=== PATIENT | female | born 1975 | race Caucasian/White ===

== ENCOUNTER 2019-10-19 10:37 | Emergency (ER) | payer BC, OTHER ==
[2019-10-19] MEDS ORDERED: Acetaminophen/HYDROcodone 325-5 MG Tab PO ONE (11:42)
--- NOTE | 2019-10-19 11:50 | EDM.PDOC ---
ED HPI GENERAL MEDICAL PROBLEM - General Chief Complaint: Upper Extremity Injury/Pain Stated Complaint: HURT LEFT ARM BETWEEN GATE & HORSE Time Seen by Provider: 10/19/19 11:03 Source of Information: Reports: Patient History Limitations: Reports: No Limitations - History of Present Illness INITIAL COMMENTS - FREE TEXT/NARRATIVE: Patient is a 44-year-old female who presents with complaints of left elbow pain after her elbow became pinned between a gate and a horse. The majority of her pain is to the medial aspect of the elbow. She does have a 1 cm abrasion to the posterior elbow. She has been able to move the arm all but it is painful. However it is painful. Denies any numbness or tingling down the extremity. She has had no history of previous injury to this extremity. 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 ED EXAM, GENERAL - Physical Exam Exam: See Below Exam Limited By: No Limitations General Appearance: Alert, WD/WN, Mild Distress Respiratory/Chest: No Respiratory Distress, Lungs Clear, Normal Breath Sounds, No Accessory Muscle Use, Chest Non-Tender Cardiovascular: Normal Peripheral Pulses, Regular Rate, Rhythm, No Edema, No Gallop, No JVD, No Murmur, No Rub Extremities: Other (Edema and ecchymosis to the medial aspect of the left elbow. 1 cm abrasion to the posterior aspect of the elbow. No obvious deformity. Patient does have full range of motion, however it is painful.) Neurological: Alert, Oriented, CN II-XII Intact, Normal Cognition, Normal Gait, Normal Reflexes, No Motor/Sensory Deficits Psychiatric: Normal Affect, Normal Mood Skin Exam: Warm, Dry, Intact, Normal Color, No Rash Course - Vital Signs Last Recorded V/S: Last Vital Signs Temp 98.6 F 10/19/19 10:43 Pulse 55 L 10/19/19 10:43 Resp 18 10/19/19 10:43 BP 128/84 10/19/19 10:43 Pulse Ox 100 10/19/19 10:43 - Orders/Labs/Meds Orders: Active Orders 24 hr Category Date Time Status Elbow Min 3V Lt [CR] Stat Exams 10/19/19 11:03 Taken Meds: Medications Discontinued Medications Generic Name Dose Route Start Last Admin Trade Name Freq PRN Reason Stop Dose Admin Hydrocodone Bitart/Acetaminophen 2 tab 10/19/19 11:42 10/19/19 11:51 [place] 325-5 Mg PO 10/19/19 11:43 2 tab ONETIME ONE Administration - Re-Assessments/Exams Free Text/Narrative Re-Assessment/Exam: 10/19/19 11:44 X-ray of the left elbow shows a small anterior fat pad. On the oblique view, there is a sharp protruding area on the proximal ulna that is concerning for a fracture versus bone spur. Patient has been placed in a posterior splint. She has been provided with an arm sling. We will have her follow-up with orthopedics. Prior to coming to the ER, patient was at [facility], however the wait was too long. She did call and speak with the conditioner tender for [facility] for orthopedics. She is calling over to see if they would be able to see her today. We will give her a prescription for [place]'s as needed for pain. Discharge instructions as documented. Departure - Departure Time of Disposition: 11:50 Disposition: Home, Self-Care 01 Condition: Fair Clinical Impression: Elbow pain, left - Discharge Information *PRESCRIPTION DRUG MONITORING PROGRAM REVIEWED*: Yes *COPY OF PRESCRIPTION DRUG MONITORING REPORT IN PATIENT PINKY: No Prescriptions: Acetaminophen/HYDROcodone [[place] 325-5 MG] 1 tab PO Q4H PRN #10 tablet PRN Reason: Pain Referrals: Luis Felipe Frederick MD [Primary Care Provider] - Osmel Plasencia PA-C [Physician Medical Billing Associate] - Forms: ED Department Discharge Additional Instructions: You were seen in the emergency department today for left elbow pain and swelling after having your arm pinched between the gate and a horse. X-rays were done. As we discussed, there is no obvious fracture, however there are a couple abnormalities that could be concerning for an underlying fracture. A splint has been applied to your left elbow. He has been provided with an arm sling. Wear this until you have been evaluated by orthopedics. Recommend that you ice through the splint and elevate the extremity as tolerated. Use Tylenol or ibuprofen as needed for any pain. For pain not relieved by these medications , a prescription for [place] has been sent to clinic pharmacy. Do not drive or operate heavy machinery after taking this medication as it can be sedating. If you experience any worsening symptoms of concern, please do not hesitate to return to the emergency department. Sepsis Event Note - Evaluation Sepsis Screening Result: No Definite Risk - Focused Exam Vital Signs: Vital Signs Temp Pulse Resp BP Pulse Ox 10/19/19 10:43 98.6 F 55 L 18 128/84 100 Date Exam was Performed: 10/19/19 Time Exam was Performed: 11:53 - My Orders Last 24 Hours: My Active Orders 10/19/19 11:03 Elbow Min 3V Lt [CR] Stat - Assessment/Plan Last 24 Hours: My Active Orders 10/19/19 11:03 Elbow Min 3V Lt [CR] Stat
--- NOTE | 2019-10-19 12:20 | CR ---
Left elbow: Four views of the left elbow were obtained. Comparison: No prior left elbow exam. No joint effusion is seen. Joint spaces are maintained. No acute fracture or other bony abnormality is identified. Impression: 1. Nothing acute is seen on left elbow study. Diagnostic code #1 This report was dictated in [place] Standard Time
== END 2019-10-19 12:10 | disposition home or self-care (01) ==
LOC: JD.ED 10:37
DX: S50.02XA Contusion of left elbow, initial encounter (principal); Z88.0 Allergy status to penicillin; W23.0XXA Caught, crushed, jammed, or pinched between moving objects, initial encounter
CPT/HCPCS: 29105; 73080; 99283; A9270